=== PATIENT | female | born 1965 | race African-American/Black ===

== ENCOUNTER 2017-04-05 13:53 | Emergency (ER) | payer OTHER ==
[~2017-04-05] VITALS: Ht 162.6 cm; Wt 90.0 kg
[~2017-04-05 13:53] MED LIST: ALBUTEROL17 GM IH; ALLEGRA180 MG PO; AMOXICILLIN200 MG PO; FLOVENT 11120 INHALA IH; FLOVENT DISKUS1 DIS2 IH; IBUPROFEN800 MG PO; PREDNISONE20 MG PO; ROBITUSSIN100 MG/5 M PO; VENTOLIN HFA18 GM IH; ZITHROMAX250 MG PO
[2017-04-05 14:54] LABS: HEMATOCRIT 36.6 % (36.0-46.0); MCH 31.3 PG (29.0-34.0); MCHC 33.1 G/DL (30.0-36.0); MCV 94.8 FL (83-99); MEAN PLAT.VOLUME 9.2 uM^3 (9.5-12.4); PLATELET COUNT 380 K/uL (156-360); RBC DIS.WIDTH-CV 14.5 % (11.8-14.6); RBC DIS.WIDTH-SD 50.1 % (39-53); RED BLOOD COUNT 3.86 M/uL (3.80-5.20); WHITE BLOOD COUNT 15.7 K/uL (4.1-10.2)
[2017-04-05 15:17] LABS: CHLORIDE 102 mEq/L (99-109); POTASSIUM 3.6 mEq/L (3.7-5.4); SODIUM 136 mEq/L (136-147)
[2017-04-05 15:19] LABS: GLUCOSE 126 mg/dL (70-99)
[2017-04-05 15:20] LABS: ANION GAP 11 MEQ/L (2-14)
[2017-04-05 15:23] LABS: GFR ESTIMATE (CALCULATED) > 59 mL/min/
[2017-04-05 15:24] LABS: UREA NITROGEN (BUN) 16 mg/dL (9-23)
[2017-04-05 15:26] LABS: TROP-I INTERPRETATION NEGATIVE; TROPONIN-I < 0.01 ng/mL (0.0-0.30)
[2017-04-05] MEDS ORDERED: FLEXERIL10 MG PO (16:27)
[2017-04-05] MEDS ORDERED: NAPROSYN500 MG PO (16:27)
[2017-04-05] MEDS ORDERED: LORTAB 5-325 M1 EACH PO (16:27)
[2017-04-05 16:44] VITALS: BP 164/104
== END 2017-04-05 16:47 | disposition home or self-care (01) ==
LOC: EME 13:53
DX: S46.912A Strain of unspecified muscle, fascia and tendon at shoulder and upper arm level, left arm, initial encounter (principal); S46.812A Strain of other muscles, fascia and tendons at shoulder and upper arm level, left arm, initial encounter; R20.9 Unspecified disturbances of skin sensation; R03.0 Elevated blood-pressure reading, without diagnosis of hypertension; X50.0XXA Overexertion from strenuous movement or load, initial encounter; F17.200 Nicotine dependence, unspecified, uncomplicated; Z71.6 Tobacco abuse counseling
CPT/HCPCS: 71020; 80048; 84484; 85027; 93005; 99281; 99284

== ENCOUNTER 2017-12-18 06:37 | Day surgery (SDC) | payer OTHER ==
[~2017-12-18] VITALS: Ht 162.6 cm; Wt 89.8 kg
[~2017-12-18 06:37] MED LIST changes: +FLEXERIL10 MG PO; +FLONASE ALLERG9.9 ML BOTH NARES; +LORTAB 5-325 M1 EACH PO; +MOTRIN800 MG PO; +NAPROSYN500 MG PO; +WOMEN'S 50 PLU1 EACH PO
[2017-12-18] MEDS ORDERED: ADVIL200 MG PO (07:23)
[2017-12-18 07:24] VITALS: BP 147/88
[2017-12-18 11:56] VITALS: BP 159/74
[2017-12-18 12:53] VITALS: BP 150/78
[2017-12-18 13:34] VITALS: BP 147/93
== END 2017-12-18 13:40 | disposition home or self-care (01) ==
LOC: SDC 06:37
PROVIDERS: Obstetrics & Gynecology
DX: N94.6 Dysmenorrhea, unspecified (principal); N80.0 Endometriosis of uterus; D25.9 Leiomyoma of uterus, unspecified; I10 Essential (primary) hypertension; G89.29 Other chronic pain; K21.9 Gastro-esophageal reflux disease without esophagitis; F17.210 Nicotine dependence, cigarettes, uncomplicated
CPT/HCPCS: 81025; 88307; J0131; J0690; J1100; J1170; J1885; J2250; J2405; J2710; J3010; Q0175